=== PATIENT | female | born 1940 ===

== ENCOUNTER 2017-09-25 13:14 | Emergency (ER) | payer MEDICARE ==
[2017-09-25 13:30] VITALS: BMI 27.4
--- NOTE | 2017-09-25 13:54 | C.PDOC ---
History Of Present Illness 77yo female, comes to ER for evaluation of left sided ribcage pain for the past 4 days. Patient states she had a mechanical fall 4 days ago when she fell down a set of stairs and injured her ribcage on the left side. She states the pain is localized and worse with movement. Otherwise, she denies any head injury, loss of consciousness, syncope, headache, shortness of breath. She offers no other medical complaints. PMD: Peggy Dougheryt Time Seen by Provider: 09/25/17 13:39 Chief Complaint (Nursing): Rib Injury History Per: Patient History/Exam Limitations: no limitations Onset/Duration Of Symptoms: Days (4) Current Symptoms Are (Timing): Still Present Quality: "Pain" Associated Symptoms: denies: Nausea, Dyspnea, Diaphoresis, Syncope Additional History Per: Patient Past Medical History Reviewed: Historical Data, Nursing Documentation, Vital Signs Vital Signs: Last Vital Signs Temp 99.1 F 09/25/17 13:30 Pulse 64 09/25/17 13:30 Resp 18 09/25/17 13:30 BP 158/81 H 09/25/17 13:30 Pulse Ox 96 09/25/17 15:22 - Medical History PMH: Arthritis, Hypercholesterolemia Surgical History: Pacemaker Family History: States: No Known Family Hx - Social History Hx Alcohol Use: No Hx Substance Use: No - Immunization History Hx Tetanus Toxoid Vaccination: No Hx Influenza Vaccination: Yes Hx Pneumococcal Vaccination: No Review Of Systems Except As Marked, All Systems Reviewed And Found Negative. Cardiovascular: Positive for: Other (left sided ribcage pain) Respiratory: Negative for: Shortness of Breath Gastrointestinal: Negative for: Vomiting Neurological: Negative for: Headache, Dizziness Physical Exam - Physical Exam Appears: Non-toxic, No Acute Distress Skin: Normal Color, Warm, Dry, No Ecchymosis Head: Atraumatic, Normacephalic Eye(s): bilateral: PERRL, EOMI Ear(s): Bilateral: Normal Nose: No Deformity, No Tenderness Oral Mucosa: Moist, No Drooling Tongue: Normal Appearing Lips: Normal Appearing Throat: No Drooling Neck: Normal ROM, Trachea Midline, No Midline Cervical Tenderness, No Paracervical Tenderness, No Step Off Deformity, Supple Chest: Symmetrical, No Deformity, Tenderness (tenderness over left lateral chest wall overlying left 8th-11th intercostal spaces. NO palpable efomrity, no skin changes.), No Ecchymosis, No Subcutaneous Emphysema Cardiovascular: Rhythm Regular, No Murmur Respiratory: No Decreased Breath Sounds, No Accessory Muscle Use, No Rales, No Rhonchi, No Stridor, No Wheezing Gastrointestinal/Abdominal: Soft, No Tenderness, No Distention, No Guarding, No Rebound Back: No Vertebral Tenderness, No Paraspinal Tenderness Extremity: Normal ROM, No Tenderness, No Pedal Edema, No Deformity, Other ( abrasion noted to left elbow) Neurological/Psych: Oriented x3, Normal Speech, Normal Cognition, Normal Motor, Normal Sensation, Normal Reflexes ED Course And Treatment O2 Sat by Pulse Oximetry: 96 (RA) Pulse Ox Interpretation: Normal - Other Rad ELBOW, LEFT X-Ray: Interpreted by Me, Read By Radiologist Interpretation: (-) ACUTE FX OR DISLOCATION - CT Scan/US CT chest w/o contrast Other Rad Studies (CT/US): Radiology Report Reviewed CT/US Interpretation: Creator : Cal Del Rosario. Dictator : Engraver Block : Mud [employer] Well Logging Operator : Caesar Wilson MD. Approver2 : Report Date : 09/25/2017 14:59: 48. My Comment : . PROCEDURE: CT chest dated in 09/2012 18. HISTORY: Injury. COMPARISON: Comparison made with prior CT scan of the abdomen pelvis 10/11/2016 which imaged both lung bases. TECHNIQUE: Contiguous helical/ transaxial images were obtained through the chest without intravenous contrast enhancement. Sagittal and coronal reconstructions were performed. . Radiation dose (DLP): 283.72 mGy-cm. This CT exam was performed using one or more of the following dose reduction techniques: Automated exposure control, adjustment of the mA and/or kV according to patient size, and/or use of iterative reconstruction technique. . FINDINGS: LUNGS: There is a lobular nodular opacity seen in the left upper lobe which exhibits a more solid and slightly more translucent components. The more solid density measures approximately 12.9 mm and is associate with a small calcified granuloma along its inferomedial border. The more posterior and translucent semi translucent component measures approximately 11 mm. This lesion could represent postinflammatory scarring however the possibility of an underlying malignancy not excluded given the history of breast carcinoma. . Followup of pulmonary consultation is recommended for further evaluation. There are multiple parenchymal and a few subpleural nodular densities scattered throughout the right lung as well as the left upper lobe most of which are under 4 mm in size. Follow-up CT scan in 6 months recommended. There appears to be some scarring changes seen in the left upper lobe/lingular region as well. MEDIASTINUM: The heart size is within range of normal. . . There is a small amount of fluid seen within the superior pericardial recess and within the cleft between ascending aorta and pulmonary trunk. . Coronary artery calcifications are present. . Ascending thoracic aorta measures approximately 3.6 cm and descending thoracic aorta measures approximately 2.4 cm. Pulmonary trunk measures approximately 2.1 cm. There are a few small nonspecific mediastinal lymph nodes 1 or 2 of which appear calcified adjacent to the left lateral margin of the aortic arch. Calcification suggest prior exposure to granulomatous disease process. . Central airways midline and patent. No large central endoluminal lesions. Air is seen intermittently throughout the esophagus. Small hiatal hernia with slight wall thickening of the distal esophagus likely due to protrusion gastric mucosa. Possibility of esophagitis not excluded. PLEURA: No pleural fluid. No pneumothorax. BONES: No fracture. No destructive lesion. UPPER ABDOMEN: Liver exhibits normal size. No obvious hepatic mass or collection seen on images presented. Re- demonstrated is a large calculus within the upper pole collecting system left kidney measuring approximately 9 mm. . Several additional smaller calcifications within the posterolateral collecting system mid pole left kidney incompletely visualized. No evidence of hydronephrosis. Cortical scarring and volume loss posterior aspect mid and lower pole left kidney again noted. Again noted is a calcified granuloma within the splenic parenchyma consistent with prior exposure to granulomatous disease process. Small hiatal hernia. OTHER FINDINGS: Left mastectomy. IMPRESSION: No evidence of acute intrathoracic posttraumatic sequela. There is a lobular nodular opacity in the left upper lobe near the anterolateral pleural surface which exhibits of both the solid and translucent components and abuts a small calcified granuloma. While these changes could be postinflammatory, the possibility of a neoplasm given this patient's history of breast carcinoma not excluded. Followup pulmonology consultation recommended. Note that these findings were discussed with emergency room KIRK Burger at approximately 3:20 p.m. with written down and read back verification. Multiple small nodules some of which are subpleural in location scattered throughout both lung hammonds. Follow-up CT scan in 6 months recommended to assess stability. See above discussion for additional details and findings. Progress Note: XR left elbow and CT Chest ordered. Patient given Tramadol 50mg PO. On re-eval, pt is afebrile, hemodynamicaly stable. non-toxic. Ambulatory in ED with stable gait. PulsEOx 96% RA. Head:AT/NC. ENT: no acute findings. neck: Supple, (-) JVD, (-) midline tenderness. Lungs: CTA B/L, BS equal B/L. CVS: (+)S1S2, reg. Abd: benign, (-) guarding, (-) rebound. Neurologicaly intact. Imaging review and discussed with patient.,. Pt has clinical findings c/w left sided rib cage contusion, hx of breast CA with granuloma, new. Pt advised and ref. to f/u with PMD, Oncology, Pulmonology for further eval/biopsy in 2-3 days for re-eavl. return if any new changes. Disposition Counseled Patient/Family Regarding: Studies Performed, Diagnosis, Need For Followup, Rx Given - Disposition Referrals: Peggy Dougherty MD [Staff Provider] - Disposition: HOME/ ROUTINE Disposition Time: 15:00 Condition: STABLE Additional Instructions: Light duty to injured area take pain medication as prescribed Follow up with PMD, Oncology, Pulmonology in 2-3 days for re-evaluation. return to ED if any worsening or new changes. Prescriptions: traMADol [Ultram] 50 mg PO TID #7 tab Instructions: Bruised Rib (DC) Forms: [facility] (Khmer) - Clinical Impression Clinical Impression: Rib contusion, Breast cancer - PA / BLENDER SNUFF / Resident Statement MD/DO has reviewed & agrees with the documentation as recorded. - Scribe Statement The provider has reviewed the documentation as recorded by the Scribe (Sandee Zhang) Provider Attestation: All medical record entries made by the Scribe were at my direction and personally dictated by me. I have reviewed the chart and agree that the record accurately reflects my personal performance of the history, physical exam, medical decision making, and the department course for this patient. I have also personally directed, reviewed, and agree with the discharge instructions and disposition.
--- NOTE | 2017-09-25 13:56 | RAD ---
PROCEDURE: Radiographs of the left elbow. HISTORY: injury COMPARISON: No prior. FINDINGS: BONES: No acute fracture. JOINTS: Unremarkable. SOFT TISSUES: Normal. JOINT EFFUSION: None. OTHER FINDINGS: Triceps tendon enthesophyte IMPRESSION: Demonstrated fracture or dislocation.
--- NOTE | 2017-09-25 15:28 | CT ---
PROCEDURE: CT chest dated in 09/2012 18 HISTORY: Injury COMPARISON: Comparison made with prior CT scan of the abdomen pelvis 10/11/2016 which imaged both lung bases TECHNIQUE: Contiguous helical/transaxial images were obtained through the chest without intravenous contrast enhancement. Sagittal and coronal reconstructions were performed. Radiation dose (DLP): 283.72 mGy-cm. This CT exam was performed using one or more of the following dose reduction techniques: Automated exposure control, adjustment of the mA and/or kV according to patient size, and/or use of iterative reconstruction technique. . FINDINGS: LUNGS: There is a lobular nodular opacity seen in the left upper lobe which exhibits a more solid and slightly more translucent components. The more solid density measures approximately 12.9 mm and is associate with a small calcified granuloma along its inferomedial border. The more posterior and translucent semi translucent component measures approximately 11 mm. This lesion could represent postinflammatory scarring however the possibility of an underlying malignancy not excluded given the history of breast carcinoma. . Followup of pulmonary consultation is recommended for further evaluation. There are multiple parenchymal and a few subpleural nodular densities scattered throughout the right lung as well as the left upper lobe most of which are under 4 mm in size. Follow-up CT scan in 6 months recommended There appears to be some scarring changes seen in the left upper lobe/lingular region as well. MEDIASTINUM: The heart size is within range of normal. . . There is a small amount of fluid seen within the superior pericardial recess and within the cleft between ascending aorta and pulmonary trunk. . Coronary artery calcifications are present. . Ascending thoracic aorta measures approximately 3.6 cm and descending thoracic aorta measures approximately 2.4 cm. Pulmonary trunk measures approximately 2.1 cm. There are a few small nonspecific mediastinal lymph nodes 1 or 2 of which appear calcified adjacent to the left lateral margin of the aortic arch. Calcification suggest prior exposure to granulomatous disease process. . Central airways midline and patent. No large central endoluminal lesions. Air is seen intermittently throughout the esophagus. Small hiatal hernia with slight wall thickening of the distal esophagus likely due to protrusion gastric mucosa. Possibility of esophagitis not excluded. PLEURA: No pleural fluid. No pneumothorax. BONES: No fracture. No destructive lesion. UPPER ABDOMEN: Liver exhibits normal size. No obvious hepatic mass or collection seen on images presented. Re- demonstrated is a large calculus within the upper pole collecting system left kidney measuring approximately 9 mm. . Several additional smaller calcifications within the posterolateral collecting system mid pole left kidney incompletely visualized. No evidence of hydronephrosis. Cortical scarring and volume loss posterior aspect mid and lower pole left kidney again noted. Again noted is a calcified granuloma within the splenic parenchyma consistent with prior exposure to granulomatous disease process. Small hiatal hernia. OTHER FINDINGS: Left mastectomy. IMPRESSION: No evidence of acute intrathoracic posttraumatic sequela. There is a lobular nodular opacity in the left upper lobe near the anterolateral pleural surface which exhibits of both the solid and translucent components and abuts a small calcified granuloma. While these changes could be postinflammatory, the possibility of a neoplasm given this patient's history of breast carcinoma not excluded. Followup pulmonology consultation recommended. Note that these findings were discussed with emergency room KIRK Burger at approximately 3:20 p.m. with written down and read back verification. Multiple small nodules some of which are subpleural in location scattered throughout both lung hammonds. Follow-up CT scan in 6 months recommended to assess stability. See above discussion for additional details and findings.
[2017-09-25 16:09] VITALS: BP 165/87; PULSE 61; RESP 20; TEMP 98.4; O2SAT 99
== END 2017-09-25 16:09 | disposition home or self-care (01) ==
LOC: C.ER 13:14
DX: S20.212A Contusion of left front wall of thorax, initial encounter (principal); W10.9XXA Fall (on) (from) unspecified stairs and steps, initial encounter; C50.919 Malignant neoplasm of unspecified site of unspecified female breast

== ENCOUNTER 2017-10-22 09:52 | Day surgery (SDC) | payer MEDICARE ==
[2017-10-21 10:03] VITALS: BMI 26.4
[2017-10-22] MEDS ORDERED: Midazolam 2 MG/2 ML VIAL ONE (11:17)
--- NOTE | 2017-10-22 12:01 | CP.SDSHP ---
Same Day Surgery H & P - History Proposed Procedure: CT guided left lung nodule biopsy Pre-Op Diagnosis: left lung nodule - Allergies Allergies: Allergies Penicillins Allergy (Intermediate, Verified 10/21/17 10:03) RASH - Physical Exam Mental Status: Alert & Oriented x3 Neuro: WNL Heart: WNL Lungs: WNL - Impression Impression: Pt with breast cancer and left lung nodule. Plan CT guided core biopsy. Informed consent and risk of pneumothorax explained to the patient. Pt. Evaluated Today:Candidate for Anesthesia & Procedure: Yes (ASA 3 Malampati 3) - Date & Time Date: 10/22/17 Time: 11:00 Short Stay Discharge - Short Stay Discharge Admitting Diagnosis/Reason for Visit: DX: LUNG MASS Disposition: HOME/ ROUTINE
--- NOTE | 2017-10-22 12:03 | PCM.SURG1 ---
Surgeon's Initial Post Op Note - Surgeon's Notes Surgeon: Vic Flores MD Stone Banker: NONE Type of Anesthesia: IV Sedation Pre-Operative Diagnosis: left lung nodule Operative Findings: 1.5 cm peripheral left upper lobe lung nodule Post-Operative Diagnosis: Left lung nodule Operation Performed: CT guided left lung nodule biopsy Specimen/Specimens Removed: two 20-gauge core specimen Estimated Blood Loss: EBL {In ML}: 1 Blood Products Given: N/A Drains Used: No Drains Post-Op Condition: Good Date of Surgery/Procedure: 10/22/17 Time of Surgery/Procedure: 12:00
--- NOTE | 2017-10-22 13:20 | RAD ---
Date of service: 10/22/2017 PROCEDURE: CHEST RADIOGRAPH, 1 VIEW HISTORY: Status post left lung nodule biopsy COMPARISON: Images from CT guided lung biopsy performed earlier the same day FINDINGS: LUNGS: Peripheral left mid lung nodule. PLEURA: No pneumothorax or pleural fluid seen. CARDIOVASCULAR: Atherosclerotic aortic calcifications. Cardiomediastinal silhouette unchanged. OSSEOUS STRUCTURES: Unchanged. VISUALIZED UPPER ABDOMEN: Normal. OTHER FINDINGS: None. IMPRESSION: Status post left lung nodule biopsy. No appreciable pneumothorax.
--- NOTE | 2017-10-22 13:52 | CT ---
PROCEDURE: Date of procedure: 10/22/2017 Procedure: 1. CT-guided lung mass biopsy, CPT [address] Guidance for biopsy, [address] Radiation: 567.48 mGy-cm Medications: The patient was sedated by anesthesiologist along with physiologic monitoring. HISTORY: Left upper lobe lung nodule TECHNIQUE: Following informed consent and procedure time out, the patient was placed supine on the CT table and noncontrast CT scan was performed. Noncontrast CT scan confirmed the presence of a 1.5 cm left lung mass. A skin localizer was placed on the patient's LEFT chest and a repeat CT scan was performed. The skin was marked, prepped, and draped in the usual sterile fashion. After the skin was anesthetized with lidocaine and the patient sedated by the anesthesiologist, a 20 gauge core needle was advanced percutaneously under direct CT guidance into the mass. Upon confirmation of needle position, Two 20-gauge core specimens were obtained and sent for routine pathology. The needle was removed and a xeroform dressing was applied. A post biopsy CT scan showed no pneumothorax. IMPRESSION: CT guided core biopsy left lung nodule.
== END 2017-10-22 13:58 | disposition home or self-care (01) ==
LOC: C.SPRAD 09:52
PROVIDERS: ATTEND Radiology Vascular & Interventional Radiology
DX: C78.02 Secondary malignant neoplasm of left lung (principal); Z85.3 Personal history of malignant neoplasm of breast
CPT/HCPCS: 32405; 71045; 77012; 88305; J2250; J3010